=== PATIENT | male | born 2005 | race Caucasian/White ===

== ENCOUNTER → 2024-04-02 | Outpatient (CLI) | payer BC ==
[2024-04-02 14:04] VITALS: BP 142/86; PULSE 95; RESP 16; TEMP 97.9
--- NOTE | 2024-04-02 14:27 | P.SLEEP ---
History of Present Illness DATE: 04/02/2024 CONSULTATION/NEW PATIENT EVALUATION HISTORY OF PRESENT ILLNESS/SLEEP-WAKE EVALUATION: 18-year-old gentleman had been evaluated in the sleep center for possible obstructive sleep apnea hypopnea syndrome. 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 FALLING ASLEEP: Usually no significant problems with falling asleep. DURING SLEEP: Patient has loud snoring and witnessed episodes of stop breathing during the sleep. Patient wakes up from sleep 3 times with 2 episodes of nocturia. No history of hypnogogical hallucinations, sleep paralysis, or cataplexy. DURING THE DAY/WAKE STATE: After sleep patient wake up tired, feels sleepiness during the day. [place] sleepiness scale is increased to 10. Usually patient does not take naps. PAST MEDICAL HISTORY: None. PAST SURGICAL HISTORY: Tonsillectomy. MEDICATIONS: None. SOCIAL HISTORY: Please see below. FAMILY HISTORY: Hypertension, heart problems, snoring. REVIEW OF SYSTEMS: Snoring, awakenings from sleep, sleepiness during the day.. No fevers. No double vision. No recent chest pain. No shortness of breath. No abdominal pain. No bleeding episodes. No blood in urine. No seizure episodes. PHYSICAL EXAMINATION: GENERAL: A pleasant patient without any distress. VITAL SIGNS: Please see below, weight 321.2 pounds, BMI 47.4. HEENT: PERRLA, EOMI. Evaluation of oropharynx showed tongue protrudes midline, low position of soft palate Mallampati 4. NECK: Supple. No JVD. Thyroid is not palpable. 21 inches in circumference. LUNGS: Clear to percussion and to auscultation. Good air exchange. No wheezing or rhonchi. HEART: S1, S2 regular. No murmurs, gallops or rubs. ABDOMEN: Soft and nontender. Bowel sounds are present. No organomegaly appreciated. EXTREMITIES: No clubbing or cyanosis. DUPLICATOR PUNCH OPERATOR: Awake, alert, and oriented x3. Cranial nerves 2 to 7 intact. There is no fasciculation or atrophy noted. No focal deficits observed. ASSESSMENT: 1. Loud snoring, witnessed episodes of stop breathing during the sleep, ext remely low position of soft palate Mallampati 4, extremely wide neck 21 inches in circumference, sleepiness with [place] Sleepiness Scale increased to 10. Obstructive sleep apnea hypopnea syndrome. 2. Obesity, BMI 47.4. 3. Hypertension in the office. 4. Status post tonsillectomy. 5. shift stacker worker PLAN: 1. Home sleep apnea test for evaluation of patient's breathing during sleep. 2. Following plan after reading sleep study. 3. Preferable position during sleep on the side. 4. No driving if patient feels any sleepiness. Patient is aware of civil and criminal liability for unsafe driving. 5. Sleep hygiene with regular sleep time for at least 7.5-8 hours. 6. Watching and losing weight. Thank you very much for referring this patient for consultation. Sincerely, Ramon Duncan MD, PhD, FAASM. Diplomat of [employer], Sleep Medicine Board by [employer] [employer] [facility] [place] cc: Past Medical History Additional Past Medical History / Comment(s): Snoring History of Any Multi-Drug Resistant Organisms: None Reported Past Surgical History: Tonsillectomy Past Psychological History: No Psychological Hx Reported Smoking Status: Never smoker Past Alcohol Use History: None Reported Past Drug Use History: None Reported - Past Family History Father Family Medical History: Hypertension Additional Family Medical History / Comment(s): Enlarged, heart, cardiac stent, snoring Physical Exam Vitals: Vital Signs Temp Pulse Resp BP Pulse Ox 04/02/24 14:03 97.9 F 95 16 142/86 100 Intake and Output 04/01/24 04/02/24 04/02/24 22:59 06:59 14:59 Other: Weight 145.66 kg Sleep Note - Sleep Data ESS Total: 10 - Sleep Note Sleep Note: Temperature: 97.9 F Pulse Rate: 95 Respiratory Rate: 16 Blood Pressure: 142/86 SpO2: 100 Height: 5 ft 9 in Weight: 145.66 kg BMI: Neck Circumference: 21
== END ==
LOC: 3 N SLEEP 13:42
PROVIDERS: ATTEND Internal Medicine
CPT/HCPCS: 99211

== ENCOUNTER → 2024-04-08 | Outpatient (CLI) | payer BC ==
--- NOTE | 2024-04-09 14:24 | P.PCN ---
Description of Procedure: CLINICAL: A home sleep apnea test has been done for confirmation of possible obstructive sleep apnea-hypopnea syndrome. DESCRIPTION OF PROCEDURE: RESULTS: Recording time was 2 hours 13 minutes. Evaluation time was 2 hours 00 minutes. Evaluation time is not sufficient for making conclusion about results of the test. Raw data of sleep recording has been reviewed and is adequate. Respiratory channel showed 0 apneas and 11 hypopneas. Apnea-hypopnea index was 5.5 per hour. Pulse rate in the range between minimum 63, maximum 186, average 79 by computer calculation. Lowest desaturation was 83%. IMPRESSION: 1. Mild obstructive Sleep Apnea Hypopnea Syndrome, but recording done only for 2 hours and 13 minutes, which is not sufficient to make any conclusion. Please see other impressions from consultation. PLAN: 1. Repeat home sleep apnea test. 2. Sleep hygiene with regular time in bed for at least 8 hours. 3. Watching weight. 4. No driving if feeling any sleepiness. Thank you very much for allowing me to participate in the management of your patient. Sincerely, Ramon Duncan MD, PhD, FAASM Diplomat of [employer] Sleep Medicine Board of [employer] [employer] [facility] [place]
== END ==
LOC: 3 N SLEEP 12:41
PROVIDERS: ATTEND Internal Medicine
DX: G47.33 Obstructive sleep apnea (adult) (pediatric) (principal)

== ENCOUNTER → 2024-05-21 | Outpatient (CLI) | payer BC ==
--- NOTE | 2024-05-27 11:27 | P.PCN ---
Description of Procedure: CLINICAL: A home sleep apnea test has been done for confirmation of possible obstructive sleep apnea-hypopnea syndrome. DESCRIPTION OF PROCEDURE: RESULTS: Recording time was 7 hours 08 minutes. Evaluation time was 6 hours 56 minutes. Evaluation time is sufficient for making conclusion about results of the test. Raw data of sleep recording has been reviewed and is adequate. Respiratory channel showed 3 apneas and 38 hypopneas. Apnea-hypopnea index was 5.6 per hour. Pulse rate in the range between minimum [], maximum [], average [] by computer calculation. Lowest desaturation was []%. IMPRESSION: 1. Mild Obstructive Sleep Apnea Hypopnea Syndrome with symptoms of excessive daytime sleepiness. Please see other impressions from consultation. PLAN: 1. The patient will be started on auto-PAP treatment. 2. I will see patient for follow up visit to discuss results of the test, evaluate clinical response on treatment with PAP therapy and make any necessary adjustments related to mask fitting, pressure, and humidification. 3. Watching weight. 4. Sleep hygiene with regular time in bed for at least 8 hours. 5. No driving if feeling any sleepiness. Thank you very much for allowing me to participate in the management of your patient. Sincerely, Ramon Duncan MD, PhD, FAASM Diplomat of [employer] Sleep Medicine Board of [employer] Techn[facility] [place]
== END ==
LOC: 3 N SLEEP 16:44
PROVIDERS: ATTEND Internal Medicine
DX: G47.33 Obstructive sleep apnea (adult) (pediatric) (principal); G47.10 Hypersomnia, unspecified